=== PATIENT | female | born 1990 | race Asian ===

== ENCOUNTER → 2019-10-22 14:29 | Outpatient (CLI) | payer BC, SELFPAY ==
[2019-10-22 15:36] LABS: HCG Quantitative /Beta subunit < 2.4 mIU/mL
== END ==
PROVIDERS: Referring Provider Specialist; Visit Provider Specialist
DX: O20.0 Threatened abortion (principal)
CPT/HCPCS: 36415; 84702

== ENCOUNTER → 2019-10-25 09:57 | Outpatient (CLI) | payer BC, SELFPAY ==
[2019-10-25 10:36] LABS: Hemoglobin A1C% w Est Avg Glu 11.4 % (4.0-6.0)
[2019-10-25 11:03] LABS: Glucose 360 mg/dL (70-100)
[2019-10-25 11:18] LABS: HCG Quantitative /Beta subunit < 2.4 mIU/mL
== END ==
PROVIDERS: Referring Provider Specialist; Visit Provider Specialist
DX: O20.0 Threatened abortion (principal)
CPT/HCPCS: 36415; 82947; 83036; 84702

== ENCOUNTER → 2020-12-30 11:08 | Outpatient (CLI) | payer OTHER, BC, SELFPAY ==
[2020-12-30 11:43] LABS: Hematocrit 44.2 % (36-46); Hemoglobin 15.2 g/dL (12.0-16.0); Mean Corpuscular HGB Conc 34.4 % (30-36); Mean Corpuscular Hemoglobin 28.4 PG (26-34); Mean Corpuscular Volume 82.6 fL (80-100); Platelet Count 326 X10^3/uL (150-400); Red Blood Cell Count 5.34 X10^6/uL (4.0-5.2); Red Cell Distribution Width 12.5 % (11.6-14.8); White Blood Cell Count 10.2 X10^3/uL (4.5-11.0)
[2020-12-30 12:11] LABS: Alanine Aminotransferase 31 IU/L (<35); Albumin 3.9 g/dL (3.5-5.0); Albumin Globulin Ratio 1.1 (1.0-2.8); Alkaline Phosphatase 78 U/L (38-126); Aspartate Aminotransferase 24 IU/L (14-36); BUN Creatinine Ratio 21.9 (6-22); Bilirubin Total 0.5 mg/dL (0.2-1.3); Blood Urea Nitrogen 7 mg/dL (7-17); Calcium 9.3 mg/dL (8.4-10.2); Carbon Dioxide 27 mmol/L (22-32); Chloride 98 mmol/L (98-107); Cholesterol 153 mg/dL (140-199); Estimated Glomerular Filt Rate > 60.0 mL/min (>60); Globulin 3.6 g/dL (1.7-4.1); Glucose 339 mg/dL (70-100); HDL Cholesterol 46 mg/dL (40-60); HEMOLYSIS < 15 (0-50); LDL Cholesterol Calculated 55 mg/dL (<100); Potassium 4.6 mmol/L (3.4-5.1); Sodium 135 mmol/L (137-145); Total Protein 7.5 g/dL (6.3-8.2); Triglycerides 258 mg/dL (35-150)
[2020-12-30 12:21] LABS: Appearance Urine UA CLOUDY; Bilirubin Urine UA NEGATIVE (NEGATIVE); Color Urine UA YELLOW; Glucose Urine UA 2+ g/dL (Negative); Ketones Urine UA 1+ (NEGATIVE); Leukocyte Esterase Urine UA TRACE (NEGATIVE); Nitrite Urine UA NEGATIVE (Negative); Occult Blood Urine UA 2+ (Negative); Protein Urine UA TRACE (Negative); Urobilinogen Urine UA 0.2 E.U./dL (0.2)
[2020-12-30 12:25] LABS: HCG Quantitative /Beta subunit < 2.4 mIU/mL
[2020-12-30 12:50] LABS: Creatinine Urine Random 113.3 mg/dL
[2020-12-30 12:55] LABS: Microalbumi Creatinin Ratio Ur 78.5 ug/mg CR (<30); Microalbumin Urine Random 8.9 mg/dL (0-1.6)
[2020-12-30 13:01] LABS: Amorphous Sediment Urine 1+; Bacteria Urine Few (2-10); Culture Indicated Urine Cult Not Indicated; RBC Urine 5-10/HPF (0-5/HPF); Squamous Epithelial Cell Urine >30 /HPF (0-5/HPF); WBC Urine 10-30/HPF (0-5/HPF)
== END ==
PROVIDERS: PCP Registered Nurse Diabetes Educator; Referring Provider Registered Nurse Diabetes Educator; Visit Provider Registered Nurse Diabetes Educator
DX: R73.9 Hyperglycemia, unspecified (principal); N91.2 Amenorrhea, unspecified; E66.9 Obesity, unspecified
CPT/HCPCS: 36415; 80053; 80061; 81001; 82043; 82570; 83036; 84443; 84702; 85027

== ENCOUNTER → 2021-01-09 08:24 | Outpatient (CLI) | payer OTHER, BC, SELFPAY ==
[2021-01-09 08:34] LABS: Bacteria Urine None Seen; WBC Urine None Seen (0-5/HPF)
[2021-01-09 10:20] LABS: Appearance Urine UA CLEAR; Bilirubin Urine UA NEGATIVE (NEGATIVE); Color Urine UA YELLOW; Glucose Urine UA 3+ g/dL (Negative); Ketones Urine UA NEGATIVE (NEGATIVE); Leukocyte Esterase Urine UA NEGATIVE (NEGATIVE); Nitrite Urine UA NEGATIVE (Negative); Occult Blood Urine UA 2+ (Negative); Protein Urine UA NEGATIVE (Negative); Specific Gravity Urine UA 1.025 (1.000-1.035); Urobilinogen Urine UA 0.2 E.U./dL (0.2)
[2021-01-09 10:32] LABS: Culture Indicated Urine Cult Not Indicated; RBC Urine 1-5/HPF (0-5/HPF); Squamous Epithelial Cell Urine 0-1 /HPF (0-5/HPF)
== END ==
PROVIDERS: PCP Registered Nurse Diabetes Educator; Referring Provider Registered Nurse Diabetes Educator; Visit Provider Registered Nurse Diabetes Educator
DX: N91.2 Amenorrhea, unspecified (principal); R73.9 Hyperglycemia, unspecified
CPT/HCPCS: 81001